=== PATIENT | male | born 1965 | race Caucasian/White ===

== ENCOUNTER 2017-02-04 11:08 | Outpatient (CLI) | payer BC ==
[2017-02-04 12:27] LABS: #Basophils 0.1 thou/uL (0.0-0.2); #Lymphocytes 0.7 thou/uL (1.20-3.40); #Monocytes 0.4 thou/uL (0.11-0.59); #Neutrophils 6.4 thou/uL (1.40-6.50); %Basophils 0.7 % (0.0-1.0); %Eosinophils 0.2 % (0.0-10.0); %Lymphocytes 9.3 % (21.0-51.0); %Monocytes 5.8 % (0.0-10.0); Hemoglobin 16.5 g/dL (14.0-18.0); Mean Corpuscular HGB CONC 33.5 g/dL (32.0-36.0); Mean Corpuscular Volume 98.5 fl (80.0-94.0); Mean Platelet Volume 9.2 fL (7.4-10.4); Platelet Count 172 thou/uL (130-400); RBC Distribution Width 11.3 % (11.5-14.5); Red Blood Cell (RBC) Count 5.02 mill/uL (4.70-6.10); White Blood Cell (WBC) Count 7.6 thou/uL (4.8-10.8)
[2017-02-04 12:45] LABS: Anion Gap 16 mmol/L (10-20); BUN (Urea Nitrogen) 12 mg/dL (8.4-25.7); Calc. Creatinine Clearance 0 mL/min (70-130); Calcium 9.3 mg/dL (7.8-10.44); Carbon Dioxide 25 mmol/L (22-29); Chloride 106 mmol/L (98-107); Estimated GFR-MDRD 76; Glucose 75 mg/dL (70-105); Sodium 143 mmol/L (136-145)
[2017-02-04 13:20] LABS: Bilirubin Negative (Negative); Blood, Urine Negative (Negative); Clarity Clear (Clear); Glucose, Urine (Dipstick) Negative (Negative); Leukocyte Negative (Negative); Nitrite Negative (Negative); Protein, Urine (Dipstick) Negative (Neg-Trace); Urobilinogen 0.2 mg/dL (0.2-1.0); pH, Urine 6.5 (5.0-9.0)
[2017-02-04 15:09] LABS: ALT (SGPT) 21 U/L (0-55); AST (SGOT) 15 U/L (5-34); Albumin 4.2 g/dL (3.5-5.0); Alkaline Phosphatase 72 U/L (40-150); Bilirubin, Direct 0.4 mg/dL (0.1-0.3); Bilirubin, Total 1.6 mg/dL (0.2-1.2); Protein, Total 7.6 g/dL (6.0-8.3)
== END 2017-02-04 11:09 | disposition home or self-care (01) ==
LOC: NAVSJIPCSP 11:08
PROVIDERS: ATTEND Family Medicine
DX: R50.9 Fever, unspecified (principal); R11.0 Nausea; R52 Pain, unspecified
CPT/HCPCS: 36415; 80048; 80076; 81003; 85025

== ENCOUNTER 2024-07-02 19:01 | Emergency (ER) | payer OTHER, BC ==
[2024-07-02] MEDS ORDERED: Lidocaine/Transparent Dressing 1 EACH KIT ONE (19:40)
[2024-07-02] MEDS ORDERED: Boostrix 0.5 ML (Tdap) VIAL (>/=7 yrs of age) ONE (19:56)
[2024-07-02] MEDS ORDERED: Lidocaine 1% (PF) 30 ML VIAL ONE (19:56)
[2024-07-02] MEDS ORDERED: Bacitracin 1 PK ONE (20:49)
[2024-07-02] MEDS ORDERED: Aspirin Chewable 81 MG TAB ONE (21:12)
== END 2024-07-02 21:30 | disposition home or self-care (01) ==
LOC: NAV ERS 19:01
DX: S91.312A Laceration without foreign body, left foot, initial encounter (principal); S00.93XA Contusion of unspecified part of head, initial encounter; J06.9 Acute upper respiratory infection, unspecified; I10 Essential (primary) hypertension; Z23 Encounter for immunization; Z79.899 Other long term (current) drug therapy; W01.10XA Fall on same level from slipping, tripping and stumbling with subsequent striking against unspecified object, initial encounter
CPT/HCPCS: 12002; 70450; 71046; 90471; 90715; J2001